=== PATIENT | male | born 1950 | race African-American/Black ===

== ENCOUNTER 2017-08-26 14:49 | Emergency (ER) | payer MEDICARE, MEDICAID ==
[~2017-08-26] VITALS: Ht 177.8 cm; Wt 79.4 kg
[2017-08-26 14:57] VITALS: BP 176/130
--- NOTE | 2017-08-26 16:28 | Emergency Room Report ---
History of Present Illness General Chief Complaint: Altered Level of Consciousness Source: EMS Present Illness HPI 66-year-old male presents ED for evaluation. Patient brought in by EMS for ALOC. Found at home on floor. Accu-Chek 30. Given glucose. Upon arrival patient is more awake but lethargic. Does not remember what happened. Denies any pain. States he is a diabetic. Denies any chest pain or shortness of breath. History of end-stage renal disease and gets dialysis. No other aggravating relieving factors. Denies any other associated symptoms Allergies: Coded Allergies: AMLODIPINE (Unverified Allergy, Unknown, 06/09/14) NSAIDS (NON-STEROIDAL ANTI-INFLAMMA (Unverified Allergy, Unknown, 06/09/14) Patient History Past Medical History: HTN, CAD, seizures, renal disease, dialysis Past Surgical History: none Pertinent Family History: none Social History: Denies: smoking, alcohol use, drug use Immunizations: UTD Reviewed Nursing Documentation: PMH: Agreed; PSxH: Agreed Nursing Documentation-PMH Past Medical History: No History, Except For Hx Cardiac Problems: Yes - cardiac surgery Hx Hypertension: Yes Hx Diabetes: Yes Hx Dialysis: Yes - access on left upper arm unknown days Hx Seizures: Yes Review of Systems All Other Systems: negative except mentioned in HPI Physical Exam Vital Signs Date Time Temp Pulse Resp B/P (MAP) Pulse Ox O2 Delivery O2 Flow Rate FiO2 08/26/17 14:42 108 22 176/130 100 Room Air 08/26/17 14:57 97.8 97.8 Sp02 EP Interpretation: reviewed, normal General Appearance: no apparent distress, alert, GCS 15, non-toxic, lethargic Head: normocephalic Eyes: bilateral eye normal inspection, bilateral eye PERRL ENT: normal ENT inspection Neck: normal inspection Respiratory: chest non-tender, lungs clear, normal breath sounds, speaking full sentences Cardiovascular #1: regular rate, rhythm, no edema Gastrointestinal: normal inspection Rectal: deferred Genitourinary: no CVA tenderness Musculoskeletal: normal inspection Neurologic: other - lethargic Psychiatric: other - lethargic Skin: normal inspection Lymphatic: normal inspection Procedures Critical Care Time Critical Care Time i. I feel this is a highly complex case requiring extensive working including EKG/Rhythm strip, Xray/CT/US, Blood/urine lab work, repeat exams while in ED, and administration of strong opiates/narcotics for pain control, admission to hospital or close patient follow up. Total time: 30 min bedside evaluation and treatment excludes procedures (EKG). Reason for critical care: altered, hypoglycemia, poor IV access Possible complications: hypotension, hypertension, MN, shock, arrhythmias, metabolic acidosis, end organ damage, respiratory failure. Interventions: Labs, IV fluids, glucagon, D5 IV fluids. US guided IV access Course: Patient presenting with altered mental status. Found down. Accu-Chek critically low. Give glucose IM in the field. History of end-stage renal disease on dialysis. Very difficult IV access. I placed ultrasound guided peripheral access in the right arm. Accu-Chek critically low. Given D50. Given food. CT head negative. EKG shows A. fib with RVR. Given Lopressor. Given small fluid bolus. trop 0.077. No chest pain. Likely troponin leak. Given hydralazine for elevated BP Consultations: nursing staff, EMS, family Performed by: Dr Garcia Tolerated well condition = serious j. because of unstable vital signs this patient had a condition that could potentially threaten life or limb. I feel this is a critical patient who required my full attention while patient was considered critical. Total Critical Care Time excluding procedures was greater than 35 minutes Medical Decision Making Diagnostic Impression: Primary Impression: Altered level of consciousness Additional Impressions: Hypoglycemia ESRD (end stage renal disease) on dialysis ER Course Hospital Course 66-year-old male presenting to ED with generalized weakness, low FS in field, h/ o diabetes Differential diagnoses include: dehyration, sepsis, hypoglycemia Clinical course Patient placed on stretcher. On manager of employee relations. After initial history and physical I ordered labs, IV fluids, CT head, EKG Peripheral IV access placed on the left arm by EMS; this is the same arm with AV fistula. They were aware. We placed a peripheral IV on the right upper extremity using ultrasound Labs-glucose 30, BUN/Cr elevated, K ok, no leukocytosis, hb/hct stable, trop 0.077 CT head ok Patient again became hypoglycemic. Given D50. Given food. Started on D5 normal saline. Given Lopressor for A. fib with conversion. Initially hypertensive given hydralazine because of insurance patient will be transferred to [facility]. I feel this is a highly complex case requiring extensive working including EKG/Rhythm strip, Xray/CT/US, Blood/urine lab work, repeat exams while in ED, and administration of strong opiates/narcotics for pain control, admission to hospital or close patient follow up. diagnosis - ALOC, ESRD on dialysis, hypoglycemia transferred in serious condition Labs Test 08/26/17 16:50 08/26/17 17:05 Sodium Level 135 MMOL/L (136-145) Potassium Level 4.4 MMOL/L (3.5-5.1) Chloride Level 98 MMOL/L (98-107) Carbon Dioxide Level 32 MMOL/L (21-32) Anion Gap 5 mmol/L (5-15) Blood Urea Nitrogen 26 mg/dL (7-18) Creatinine 7.1 MG/DL (0.55-1.30) Estimat Glomerular Filtration Rate 9.5 mL/min (>60) Glucose Level 31 MG/DL (74-106) Calcium Level 9.6 MG/DL (8.5-10.1) Total Bilirubin 1.0 MG/DL (0.2-1.0) Aspartate Amino Transf (AST/SGOT) 62 U/L (15-37) Alanine Aminotransferase (ALT/SGPT) 46 U/L (12-78) Alkaline Phosphatase 261 U/L (46-116) Total Creatine Kinase 300 U/L (26-308) Creatine Kinase MB 5.2 NG/ML (0.0-3.6) Creatine Kinase MB Relative Index 1.7 Troponin I 0.077 ng/mL (0.000-0.056) Total Protein 9.9 G/DL (6.4-8.2) Albumin 3.1 G/DL (3.4-5.0) Globulin 6.8 g/dL Albumin/Globulin Ratio 0.5 (1.0-2.7) White Blood Count 7.8 K/UL (4.8-10.8) Red Blood Count 4.88 M/UL (4.70-6.10) Hemoglobin 13.5 G/DL (14.2-18.0) Hematocrit 44.3 % (42.0-52.0) Mean Corpuscular Volume 91 FL (80-99) Mean Corpuscular Hemoglobin 27.6 PG (27.0-31.0) Mean Corpuscular Hemoglobin Concent 30.4 G/DL (32.0-36.0) Red Cell Distribution Width 15.4 % (11.6-14.8) Platelet Count 108 K/UL (150-450) Mean Platelet Volume 10.7 FL (6.5-10.1) Neutrophils (%) (Auto) 77.6 % (45.0-75.0) Lymphocytes (%) (Auto) 14.1 % (20.0-45.0) Monocytes (%) (Auto) 7.6 % (1.0-10.0) Eosinophils (%) (Auto) 0.1 % (0.0-3.0) Basophils (%) (Auto) 0.7 % (0.0-2.0) Prothrombin Time 11.0 SEC (9.30-11.50) Prothromb Time International Ratio 1.1 (0.9-1.1) Activated Partial Thromboplast Time 29 SEC (23-33) EKG Diagnostic Results Rate: tachycardiac Rhythm: other - aflutter ST Segments: no acute changes Rhythm Strip Diag. Results EP Interpretation: yes Rhythm: no PVC's, no ectopy Chest X-Ray Diagnostic Results Chest X-Ray Diagnostic Results : Chest X-Ray Ordered: Yes Indication: Other - aloc EP Interpretation: Yes Interpretation: no consolidation, no effusion, no pneumothorax, other - cardiomegaly. sternotomy wires noted Impression: Other - cardiomegly Electronically Signed by: Electronically signed by Chemo Garcia MD CT/MRI/US Diagnostic Results CT/MRI/US Diagnostic Results : Imaging Test Ordered: CT Head Impression no acute process Last Vital Signs Date Time Temp Pulse Resp B/P (MAP) Pulse Ox O2 Delivery O2 Flow Rate FiO2 08/26/17 14:57 97.8 112 22 176/130 100 Room Air 97.8 Status: improved Disposition: XFER SHT-TRM HOSP Condition: Serious Chemo Garcia MD Aug 26, 2017 16:28
[2017-08-26] MEDS ORDERED: Sodium Chloride 500ML 550 ML IV SCH (17:15)
[2017-08-26] MEDS ORDERED: Metoprolol 5mg/5ml Inj IVP ONE (17:15)
[2017-08-26 17:29] LABS: BASOPHILS % (AUTO) 0.7 % (0.0-2.0); EOSINOPHILS % (AUTO) 0.1 % (0.0-3.0); HEMATOCRIT 44.3 % (42.0-52.0); HEMOGLOBIN 13.5 G/DL (14.2-18.0); LYMPHOCYTES % (AUTO) 14.1 % (20.0-45.0); MEAN CORPUSCULAR VOLUME 91 FL (80-99); MONOCYTES % (AUTO) 7.6 % (1.0-10.0); NEUTROPHILS % (AUTO) 77.6 % (45.0-75.0); PLATELET COUNT 108 K/UL (150-450); RED BLOOD COUNT 4.88 M/UL (4.70-6.10); RED CELL DISTRIBUTION WIDTH 15.4 % (11.6-14.8); WHITE BLOOD COUNT 7.8 K/UL (4.8-10.8)
[2017-08-26 17:41] LABS: INR 1.1 (0.9-1.1)
[2017-08-26 17:47] VITALS: BP 185/126
[2017-08-26 17:56] LABS: BLOOD UREA NITROGEN 26 mg/dL (7-18); CREATININE 7.1 MG/DL (0.55-1.30); SODIUM 135 MMOL/L (136-145)
[2017-08-26] MEDS ORDERED: D5NS 1,000 ML IV SCH (18:00)
[2017-08-26 18:01] LABS: ALANINE AMINOTRANSFERASE 46 U/L (12-78); ALBUMIN 3.1 G/DL (3.4-5.0); ALBUMIN/GLOBULIN RATIO 0.5 (1.0-2.7); ALKALINE PHOSPHATASE 261 U/L (46-116); ASPARTATE AMINO TRANSFERASE 62 U/L (15-37); CKMB 5.2 NG/ML (0.0-3.6); CREATINE KINASE 300 U/L (26-308)
[2017-08-26 18:04] LABS: ANION GAP 5 mmol/L (5-15); CARBON DIOXIDE 32 MMOL/L (21-32); CHLORIDE 98 MMOL/L (98-107); POTASSIUM 4.4 MMOL/L (3.5-5.1)
[2017-08-26 18:05] LABS: CALCIUM 9.6 MG/DL (8.5-10.1)
[2017-08-26 19:18] VITALS: BP 182/106
[2017-08-26 20:27] VITALS: BP 157/93
[2017-08-26] MEDS ORDERED: Dextrose 10%/0.9% SOD CHL 1,000 ML IV SCH (21:30)
[2017-08-26] MEDS ORDERED: Dextrose 10% 1,000 ML IV SCH (21:45)
[2017-08-26 22:12] VITALS: BP 190/136
--- NOTE | 2017-08-27 08:38 | Diagnostic Imaging Report ---
Indications: Altered mental status Technique: Spiral acquisitions obtained through the brain. Angled axial and coronal 5 x 5 mm slices were reconstructed. Total dose length product 1516.59 mGycm. CTDI vol(s) 70.38 mGy. Dose reduction achieved using automated exposure control Comparison: 08/29/2014 Findings: Increased vascular calcifications are seen within the occipital scalp. No acute intracranial hemorrhage or edema, mass effect, nor midline shift. There is age-related enlargement of the ventricles and extra-axial CSF spaces, and considerable periventricular deep white matter low-attenuation consistent with chronic ischemic change.. This has progressed somewhat. The calvarium is intact. The orbits and sinuses are unremarkable. Previously demonstrated right maxillary sinus retention cyst is no longer evident. No other significant interim change Impression: No acute intracranial bleed or mass effect Progressive involutional changes, since prior study 08/29/2014 This agrees with the preliminary interpretation provided overnight by [facility]erad[facility] service. The CT scanner at [facility] is accredited by the [employer] and the scans are performed using protocols designed to limit radiation exposure to as low as reasonably achievable to attain images of sufficient resolution adequate for diagnostic evaluation.
--- NOTE | 2017-08-27 10:53 | Diagnostic Imaging Report ---
Indication: Chest pain Technique: One view of the chest Comparison: 08/29/2014 Findings: The heart is enlarged. There are median sternotomy sutures. There are old healed left rib fractures. There is equivocal minimal interstitial congestion. No focal airspace consolidation. Pleural spaces are clear Impression: Cardiomegaly with equivocal minimal interstitial congestion. Correlate with clinical findings
--- NOTE | 2017-08-30 18:50 | Cardiology Report ---
APPROVED REPORT EKG Measurement Heart [id number] Atrial flutter with 2:1 AV conduction Pulmonary disease pattern Left anterior fascicular block Marked ST abnormality, possible inferior subendocardial injury Abnormal ECG
== END 2017-08-26 22:12 | disposition short-term general hospital (02) ==
LOC: EDBD 14:49 → EMR 15:29
DX: E11.649 Type 2 diabetes mellitus with hypoglycemia without coma (principal); E11.22 Type 2 diabetes mellitus with diabetic chronic kidney disease; I12.0 Hypertensive chronic kidney disease with stage 5 chronic kidney disease or end stage renal disease; N18.6 End stage renal disease; Z99.2 Dependence on renal dialysis; I25.10 Atherosclerotic heart disease of native coronary artery without angina pectoris; Z88.8 Allergy status to other drugs, medicaments and biological substances; R40.4 Transient alteration of awareness
CPT/HCPCS: 36415; 70450; 71045; 80053; 82550; 82553; 82962; 84484; 85025; 85610; 85730; 93005; 96360; 96374; 96375; 99291; J0360